=== PATIENT | male | born 1990 | race Caucasian/White ===

== ENCOUNTER 2017-09-03 22:46 | Emergency (ER) | payer SELFPAY ==
[2017-09-03 22:54] VITALS: TEMP 98.8
--- NOTE | 2017-09-03 23:12 | ED ---
URI HPI - General Chief Complaint: Upper Respiratory Infection Stated Complaint: flu like symptoms Time Seen by Provider: 09/03/17 22:55 Source: patient, RN notes reviewed Mode of arrival: ambulatory Limitations: no limitations - History of Present Illness Initial Comments: This a 27-year-old male presents emergency Department chief complaint of cough congestion for the last week. Patient states that he has productive cough with brown sputum. Patient states that he did have some vomiting last 24 hours but has resolved. Last episode was 4:00 this morning. He is tolerated fluids today. He has no abdominal pain. States initially all symptoms started sore throat and nasal congestion or sore throat has improved. He was using DayQuil NyQuil which is helping. Patient did have 2 days of fever 101. He states his been afebrile last 4 hours. Denies any sick contacts and knows about patient has NO KNOWN DRUG ALLERGIES denies any prescription medications. - Related Data Previous Rx's Medication Instructions Recorded Amoxicillin/Potassium Clav 1 tab PO Q12HR #20 tab 09/03/17 [Augmentin 875-125 Tablet] Allergies Allergy/AdvReac Type Severity Reaction Status Date / Time No Known Allergies Allergy Verified 09/03/17 22:54 Review of Systems ROS Statement: Those systems with pertinent positive or pertinent negative responses have been documented in the HPI. ROS Other: All systems not noted in ROS Statement are negative. Past Medical History Past Medical History: No Reported History Additional Past Surgical History / Comment(s): left shoulder. Past Psychological History: Anxiety, Depression Smoking Status: Never smoker Past Alcohol Use History: None Reported Past Drug Use History: Marijuana General Exam Limitations: no limitations General appearance: alert, in no apparent distress Head exam: Present: atraumatic, normocephalic, normal inspection Eye exam: Present: normal appearance, PERRL, EOMI. Absent: scleral icterus, conjunctival injection, periorbital swelling ENT exam: Present: normal exam, normal oropharynx, mucous membranes moist, TM's normal bilaterally, normal external ear exam Neck exam: Present: normal inspection, full ROM. Absent: tenderness, meningismus, lymphadenopathy Respiratory exam: Present: normal lung sounds bilaterally. Absent: respiratory distress, wheezes, rales, rhonchi, stridor Cardiovascular Exam: Present: regular rate, normal rhythm, normal heart sounds. Absent: systolic murmur, diastolic murmur, rubs, gallop, clicks GI/Abdominal exam: Present: soft, normal bowel sounds. Absent: distended, tenderness, guarding, rebound, rigid Back exam: Absent: CVA tenderness (R), CVA tenderness (L) Skin exam: Present: warm, dry, intact, normal color. Absent: rash Course Vital Signs 09/03/17 22:50 Temperature 98.8 F Pulse Rate 106 H Respiratory 20 Rate Blood Pressure 137/84 O2 Sat by Pulse 99 Oximetry Medical Decision Making - Medical Decision Making 27-year-old male presented emergency from for URI symptoms 7 days. Patient symptoms are progressively getting worse. Chest x-ray no acute abnormality influenza is negative. Patient does have some exudates noted on his tonsils. Patient was treated for acute pharyngitis URI symptoms with Augmentin return parameters were discussed. - Lab Data Lab Results 09/03/17 Range/Units 23:00 Influenza Type A RNA Not Detected (Not Detectd) Influenza Type B (PCR) Not Detected (Not Detectd) Disposition Clinical Impression: Upper respiratory infection, Pharyngitis, Productive cough Disposition: HOME SELF-CARE Condition: Stable Instructions: Upper Respiratory Infection (ED) Additional Instructions: Please return to the Emergency Department if symptoms worsen or any other concerns. Prescriptions: Amoxicillin/Potassium Clav [Augmentin 875-125 Tablet] 1 tab PO Q12HR #20 tab Referrals: Nonstaff,Physician [Primary Care Provider] - 1-2 days Time of Disposition: 23:55
--- NOTE | 2017-09-03 23:34 | XR ---
EXAM: XR Chest, 2 Views CLINICAL HISTORY: Reason: Cough TECHNIQUE: Frontal and lateral views of the chest. COMPARISON: No relevant prior studies available. FINDINGS: Lungs: Unremarkable. No consolidation. Pleural space: Unremarkable. No pneumothorax. Heart: Unremarkable. No cardiomegaly. Mediastinum: Unremarkable. Bones/joints: Unremarkable. IMPRESSION: Normal chest x-rays.
[2017-09-03] MEDS ORDERED: ONDANSETRON 4 MG ODT STARTER PACK 2 TAB BTL PO STA (23:55)
[2017-09-03] MEDS ORDERED: AMOXIC-POT CLAV 875-125MG 1 EACH TAB PO STA (23:55)
[2017-09-03 23:57] VITALS: BP 141/85; PULSE 86; RESP 18
== END 2017-09-04 00:02 | disposition home or self-care (01) ==
LOC: EC 22:46
DX: J02.9 Acute pharyngitis, unspecified (principal)
CPT/HCPCS: 87502; 71020; 99283; S0119